=== PATIENT | male | born 1940 | race Caucasian/White ===

== ENCOUNTER 2022-01-29 09:12 | Emergency (ER) | payer MEDICARE, BC ==
[2022-01-29 10:10] LABS: CORONAVIRUS COVID-19 NAA NEGATIVE (NEGATIVE)
[2022-01-29] MEDS ORDERED: Albuterol/Ipratropium 3.0-0.5 MG/3 ML Neb Soln NEB ONE (10:13)
[2022-01-29 10:49] LABS: ESTIMATED GFR 89 mL/min (>60); TROPONIN I HIGH SENSITIVITY 20.7 pg/mL (<=60.3)
[2022-01-29] MEDS ORDERED: Furosemide 40 MG/4 ML VIAL IVPUSH ONE (11:28)
[2022-01-29] MEDS ORDERED: Sodium Chloride 0.9% 10 ML Syringe FLUSH PRN (11:28)
[2022-01-29 12:45] VITALS: BP 140/64; PULSE 78
== END 2022-01-29 15:10 | disposition home or self-care (01) ==
LOC: JP.ED 09:12
DX: I48.20 Chronic atrial fibrillation, unspecified (principal); I11.0 Hypertensive heart disease with heart failure; I50.9 Heart failure, unspecified; G47.33 Obstructive sleep apnea (adult) (pediatric); M19.90 Unspecified osteoarthritis, unspecified site; Z79.82 Long term (current) use of aspirin; Z79.01 Long term (current) use of anticoagulants; Z79.899 Other long term (current) drug therapy; Z20.822 Contact with and (suspected) exposure to COVID-19
CPT/HCPCS: 0241U; 36415; 71046; 80053; 83880; 84484; 85025; 85610; 94640; 96374; 99285; J1940; J7620

== ENCOUNTER 2022-10-02 16:21 | Emergency (ER) | payer MEDICARE, BC ==
[2022-10-02 17:41] VITALS: BP 132/80; PULSE 72
== END 2022-10-02 17:35 | disposition home or self-care (01) ==
LOC: JP.ED 16:21
DX: R04.0 Epistaxis (principal); I10 Essential (primary) hypertension; I48.91 Unspecified atrial fibrillation; Z86.16 Personal history of COVID-19; Z79.01 Long term (current) use of anticoagulants; Z79.82 Long term (current) use of aspirin
CPT/HCPCS: 30903; 99283

== ENCOUNTER 2024-01-05 16:15 | Emergency (ER) | payer MEDICARE, BC ==
[2024-01-05 16:26] VITALS: BP 158/59
[2024-01-05 16:31] VITALS: PULSE 70
== END 2024-01-05 16:52 | disposition home or self-care (01) ==
LOC: JP.ED 16:15
DX: Z96.21 Cochlear implant status (principal); I10 Essential (primary) hypertension; E78.00 Pure hypercholesterolemia, unspecified; Z79.899 Other long term (current) drug therapy; Z79.82 Long term (current) use of aspirin
CPT/HCPCS: 99282; 99283